=== PATIENT | male | born 1950 ===

== ENCOUNTER 2017-10-03 00:22 | Day surgery (SDC) | payer OTHER ==
[2016-01-17 10:21] VITALS: Ht 165.1 cm; Wt 70.3 kg
[2017-09-30 10:46] LABS: PLATELET COUNT, AUTOMATED 196 K/uL (150-450)
[~2017-10-03] VITALS: Ht 165.1 cm; Wt 70.3 kg
[~2017-10-03 00:22] MED LIST: AMOX-559 PO; ASPI-1471 PO; CETI1TAB80 PO; CHOL10005 PO; CLON-298 PO; CLON0.5T66 PO; CROM13SP10 NS; FEXO1TAB60 PO; GUAI600T57 PO; HYDR-4225 PO; IBUP1TAB93 PO; LEVO-3 PO; LEVO150T72 PO; LOR5/325 PO; MULT-1287 PO; MULT-1335 PO; SERT-1 PO; SERT-173 PO; WHEA1POW PO
[2017-10-03 07:45] VITALS: BP 141/79
[2017-10-03] MEDS ORDERED: fentaNYL CITR 100 MCG/2 ML AMP ONE (08:13)
[2017-10-03] MEDS ORDERED: ONDANSETRON 4 MG/2 ML VIAL ONE (08:14)
[2017-10-03] MEDS ORDERED: LIDOCAINE MPF 1% 5 ML VIAL ONE (08:14)
[2017-10-03] MEDS ORDERED: DEXAMETHASONE SOD 4 MG/ML VIAL ONE (08:14)
[2017-10-03] MEDS ORDERED: PROPOFOL EMUL(*) 10MG/ML 20 ML 20 ML ONE (08:14)
[2017-10-03] MEDS ORDERED: GENTAMICIN(*) 80 MG/2 ML VIAL 160 MG in DEXTROSE 5%(*) 100 ML BAG 100 ML IVPB ONE (08:25)
[2017-10-03] MEDS ORDERED: LIDOCAINE/SOD BICARB 8.4% SYR ID ONE (08:25)
[2017-10-03] MEDS ORDERED: NORMOSOL R SOLN(*) 1000 ML BAG 1,000 ML IV PRN (08:25)
[2017-10-03] MEDS ORDERED: cefTRIAXone(*) 1 GM VIAL 1 GM in NS(*) 0.9% 100 ML ADDVANT BAG 100 ML IVPB ONE (08:25)
[2017-10-03] MEDS ORDERED: FAMOTIDINE 20 MG TAB PO ONE (08:25)
[2017-10-03] MEDS ORDERED: MIDAZOLAM 2 MG/2 ML VIAL IVP PRN (08:25)
[2017-10-03] MEDS ORDERED: ePHEDrine 25 MG/5 ML DISP.SYR IVP ONE (10:05)
[2017-10-03] MEDS ORDERED: WATER FOR IRRIG,STERILE 3000ML IR ONE (10:31)
--- NOTE | 2017-10-03 11:12 | RADIOLOGY IMAGING REPORT ---
FACILITY: [facility] - [place] PATIENT NAME: Roverto Beebe : 1950 MR: [id number] V: [id number] EXAM DATE: ORDERING PHYSICIAN: JOHN ALLEN TECHNOLOGIST: Location: [facility] - [place] Patient: Roverto Beebe : 1950 Visit/Account:[id number] Date of Sevice: 10/03/2017 Exam type: PROSTATE BIOPSY History: Elevated PSA Comparison: None. Findings: Prostate biopsy was performed by Dr. Allen. Sonographic assistance was provided. Please see Dr. Alexis low's report for complete details IMPRESSION: 1. As above Report Dictated By: Shelbie Prado MD at 10/03/2017 11:08 AM Report E-Signed By: Shelbie Prado MD at 10/03/2017 11:08 AM WSN:[email or web address]
[2017-10-03] MEDS ORDERED: FAMO-67 PO (11:36)
[2017-10-03] MEDS ORDERED: LEVO-85 PO (11:36)
[2017-10-03] MEDS ORDERED: IBUP800T37 PO (11:37)
[2017-10-03 11:50] VITALS: BP 112/62
[2017-10-03 12:00] VITALS: BP 109/59
[2017-10-03] MEDS ORDERED: HYDR-389 PO (12:04)
[2017-10-03 12:15] VITALS: BP 108/64
[2017-10-03 12:22] VITALS: BP 110/61
[2017-10-03 12:23] VITALS: BP 117/59
--- NOTE | 2017-10-04 18:41 | OPERATIVE REPORT 1 ---
EVENT DATE: October 03, 2017 SURGEON: Clarence Muro MD ANESTHESIOLOGIST: Dimitri Carvajal MD ANESTHESIA: General anesthetic. PREOPERATIVE DIAGNOSIS Elevated prostate-specific antigen, etiology ? POSTOPERATIVE DIAGNOSES 1. Elevated prostate-specific antigen, etiology ? 2. Calculus prostatitis. PROCEDURES 1. Prostate ultrasound 2. Transrectal biopsies x 12 3. Cystoscopy DESCRIPTION OF PROCEDURE Under general anesthetic, the patient was prepped and draped in the extended lithotomy position. The 21 panendoscope was admitted through the urethra into the bladder. The urethra was normal. The prostate showed trilobar hyperplasia with obstruction. There was minimal blood in the prostatic urethra. The bladder showed 4+ trabeculation and slight intravesical extension of the median lobe. The trigone and ureteral orifices were normal. No demonstrable lesions. The prostate ultrasound probe was introduced, and scanning showed cystic lesions on the right lateral and mid areas of the prostate. The cyst in the mid prostate was probably coming from the seminal vesicle or the ampulla of the vas deferenes. The prostate was scanned. There were calculi at the left mid base, consistent with the area where I was feeling some induration in my opinion. The prostate measured approximately 31 g. Biopsies were obtained from the base , mid, and apical areas of the prostate bilaterally for a total of 12 samples, two from each area. The ultrasound probe was removed. Digital rectal exam revealed minimal blood in the rectal ampulla. The patient tolerated the procedures satisfactorily and returned to the recovery room in satisfactory condition. This is a 67-year-old [place]ian male complaining of elevated PSA in the range of 8.22 in May 2017. He had a preoperative PSA that resulted 6.9. Options were discussed with the patient. He was agreeable to further evaluation as to the etiology of his elevated prostate-specific antigen. That has been accomplished. See operative note for details. The patient will be ready for discharge home when alert and functional. He is to force fluids, 2 L per day. Activities are as tolerated. We plan followup on the September. He is to call for an appointment. He is call this coming Tuesday for the results of his biopsies. He is to continue to use the medications. A copy of the instructions was given to the patient. The patient was discharged home on [place], Pepcid, Motrin, and Levaquin therapy in addition to his usual medications. MTDD
[2017-10-26] MEDS ORDERED: BICA50TA39 PO (12:15)
[2017-10-26] MEDS ORDERED: LEUP3.753 IM (12:15)
== END 2017-10-03 11:50 | disposition home or self-care (01) ==
LOC: OR 00:22
DX: R97.20 Elevated prostate specific antigen [PSA] (principal); N41.9 Inflammatory disease of prostate, unspecified
CPT/HCPCS: 36415; 55700; 76942; 84153; 84443; 85025; 88305; 88344; J0696; J1100; J1580; J2001; J2405; J2704; J3010; J7050; J7060; 82040; 82247; 82310; 82374; 82435; 82565; 82947; 84075; 84132; 84155; 84295; 84450; 84460; 84520

== ENCOUNTER → 2017-10-21 | Outpatient (CLI) | payer OTHER ==
[2016-01-17 10:21] VITALS: BMI 25.7
[~2017-10-21] MED LIST changes: +FAMO-67 PO; +HYDR-389 PO; +IBUP800T37 PO; +IOPAMIDOL 76% 75 ML INFUS BTL 75 ML ONE; +LEVO-85 PO; +NS 0.9% 20 ML SDV 40 ML ONE; -SERT-173 PO; +SERT20OR6 PO
--- NOTE | 2017-10-21 10:05 | RADIOLOGY IMAGING REPORT ---
[place] [facility] [place] Roverto Beebe : 1950 MR: [id number] V: [id number] EXAM DATE: ORDERING PHYSICIAN: JOHN ALLEN TECHNOLOGIST: Location: [facility] [place] Patient: Roverto Beebe : 1950 Visit/Account:[id number] Date of Sevice: 10/21/2017 ABDOMEN/PELVIS W/WO CONTRAST HISTORY: Adenocarcinoma the prostate TECHNIQUE: Axial images acquired through the abdomen/pelvis both with and without IV contrast.. Salo nal and sagittal reformatting also performed. Dose Lowering Technique One of the following dose optimization techniques was utilized in the performance of this exam: Autom ated exposure control; adjustment of the mA and/or kV according to the patient's size; or use of an i terative reconstruction technique. Specific details can be referenced in the facility's radiology C T exam operational policy. CONTRAST: 75 mL Isovue-370 COMPARISON: None. FINDINGS: Visualized lung bases: There is a 6 mm noncalcified pulmonary nodule inferior aspect the right middl e lobe best seen on image 42 of series 5. There are multiple noncalcified pulmonary nodules in the right lower lobe ranging in size from 2 mm t o 8 mm. . There are multiple noncalcified pulmonary nodules in the left lower lobe ranging in size from 2 mm to 9 mm. There are several noncalcified pulmonary nodules in the lingula ranging in size from 2 mm to 5 mm Hepatobiliary: Negative. Spleen: Negative. Adrenals: Negative. Pancreas: Negative. Kidneys ureters and bladder: Negative. Genitalia: The prostate gland is borderline enlarged impinging upon the floor the urinary bladder. GI: There is diverticulosis left-sided colon although no CT evidence of acute diverticulitis. On th e without contrast images there is moderate fluid distention of the distal esophagus suggesting gastr oesophageal reflux disease Vessels/spaces/nodes: Mild to moderate vascular calcifications Bones/soft tissues: Bilateral inguinal hernias containing fat. There is a 1 cm anterior listhesis of L5 with respect to S1 secondary to bilateral pars defects at L5 . There are severe disc space narrowing at this level and degenerative endplate changes. There is a sclerotic density seen along the left side of the L1 vertebral body is indeterminate Additional findings: None pertinent. IMPRESSION: There are multiple noncalcified pulmonary nodules seen in both lower lobes. Given the clinical histo ry of prostate cancer metastases should be excluded. The current Fleischner Society recommendations are as follows For nodules this size in a low-risk patient (minimal or absent smoking history, no his tory of malignancy), a 3-6 month follow-up CT is recommended, then consider CT at 18-24 months. In a high risk patient, (smoking or malignancy history), a CT at 3-6 months then at 18-24 months is recomm ended. Diverticulosis left-sided colon although no CT evidence of acute diverticulitis There is moderate fluid distention of the distal esophagus suggesting gastroesophageal reflux disease Bilateral inguinal hernias containing fat Spondylotic changes lumbar spine most prominent at L5-S1 Sclerotic density along the left-sided L1 vertebral body is indeterminate. This could represent a [place] although a bone metastases not excluded given the clinical history of prostate cancer. Bon e scan may be of value. Report Dictated By: Shelbie Prado MD at 10/21/2017 9:40 AM Report E-Signed By: Shelbie Prado MD at 10/21/2017 10:01 AM WSN:[email or web address]
--- NOTE | 2017-10-21 13:09 | RADIOLOGY IMAGING REPORT ---
FACILITY: [facility] PATIENT NAME: Roverto Beebe : 1950 MR: [id number] V: [id number] EXAM DATE: ORDERING PHYSICIAN: JHON ALLEN TECHNOLOGIST: Location: [facility] Patient: Roverto Beebe : 1950 Visit/Account:[id number] Date of Sevice: 10/21/2017 WHOLE BODY BONE SCAN HISTORY: Prostate cancer TECHNIQUE: 26.5 mCi technetium 99m HDP was injected intravenously. Delayed anterior and posterior wh ole body gamma camera images were obtained. Additional gamma camera images: Right and left lateral skull COMPARISON: CT abdomen and pelvis performed today and CT of the neck March 15, 2016 FINDINGS: Bone radiotracer activity: There is very mild uptake seen over the lower cervical spine consistent w ith degenerative changes. There is a focal area of isotope uptake seen over the right sternoclavicul ar joint and small subtle focal areas of isotope uptake seen over both clavicles. Extraosseous radiotracer activity: Unremarkable. Renal and urinary collecting system activity: Unremarkable. IMPRESSION: There is isotope uptake over the lower cervical spine corresponding to degenerative changes in the ce rvical spine as seen on a prior CT from March 15, 2016 Focal area of isotope uptake over the right sternum curvature joints consistent with degenerative nemo nges as seen on the prior CT Subtle focal areas of isotope uptake seen over both clavicles possibly related to prior trauma No scintigraphic evidence of osseous metastases. Report Dictated By: Shelbie Prado MD at 10/21/2017 1:02 PM Report E-Signed By: Shelbie Prado MD at 10/21/2017 1:05 PM WSN:[email or web address]
== END ==
LOC: CT 03:12
DX: R91.8 Other nonspecific abnormal finding of lung field (principal); K57.30 Diverticulosis of large intestine without perforation or abscess without bleeding; K40.20 Bilateral inguinal hernia, without obstruction or gangrene, not specified as recurrent; M47.896 Other spondylosis, lumbar region
CPT/HCPCS: 74178; 78306; A9503; J7050; Q9967

== ENCOUNTER 2017-12-29 08:23 | Outpatient (RCR) | payer MEDICARE, OTHER ==
[2016-01-17 10:21] VITALS: BMI 25.7
[2016-11-01 09:19] VITALS: BP 124/65
--- NOTE | 2017-10-25 22:22 | ONCOLOGY CONSULTATION ---
EVENT DATE: October 25, 2017 PRIMARY SITE AND HISTOPATHOLOGY Moderate to poorly differentiated adenocarcinoma of the prostate. Patient presenting with an elevated PSA and palpable nodule. Ultrasound-guided biopsy of the prostate on October 03, 2017 reveals moderate to poorly differentiated adenocarcinoma of the prostate in 10 of 12 core biopsy specimens. Karrie 4+5= 9 poorly differentiated carcinoma involving the right lateral gland. Right lateral base is also Karrie 9, and left lateral biopsy is a [place] 7 carcinoma. See pathology report for full details. Stage T2 Nx M0. HISTORY OF PRESENT ILLNESS This is a 67-year-old gentleman who was referred to be by Dr. Muro for discussion of radiation oncology options for newly diagnosed prostate carcinoma today. Patient is accompanied by family. 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 Details listed below. The patient [facility], running in the 2 range. He recently had health fair screening [facility] and was found to have an elevated PSA in the 8 range. The patient had an abnormal rectal exam at that time. He also has a family history of prostate carcinoma on his father's side. Patient was then referred to Dr. Muro for further evaluation. He confirmed an abnormal gland, and the patient was scheduled for an ultrasound-guided biopsy on October 03, 2017. Prostate measured 31 g. Twelve samples were taken from the prostate. Cystoscopy was also performed which showed 4+ trabeculation and a slight intravesical extension of the median lobe. Prostate showed trilobar hyperplasia with obstruction. Multiple biopsies were obtained. Tumor occupied 5% to 6% of the core biopsy specimens. Highest [place] grade was 4+5=9 involving right lateral middle biopsy and the right lateral base. Left lobe contained [place] 7 poorly differentiated carcinoma. Ten of 12 biopsies were positive for malignant glands. PSA was repeated as a baseline prior to initiating Lupron, which was 6.9 ng/mL on September 20, 2017. Patient received a single one-month injection of Lupron approximately three weeks ago and is scheduled to have an additional injection in the next week. Patient underwent a staging CT of the abdomen and pelvis as well as a bone scan. I reviewed the studies today. The bone scan is negative. The CT scan reveals an enlarged prostate with some mild irregularity on the left. Seminal vesicles appeared to be grossly symmetric. Spondylotic changes are noted of the lumbar spine at L5-S1. No pelvic lymphadenopathy. Small nodules were noted in the right and left lower lung field, and a follow-up CT scan of the thorax will be obtained later this week. Patient denies any persistent bone pain. He has baseline nocturia times three. Denies any dysuria, denies any hesitancy. A UA score 4. Patient is here to review films and discuss therapeutic options. Baseline CBC and CMP were normal. PAST MEDICAL HISTORY 1. Regionally advanced thyroid carcinoma, presenting to Dr. Wiseman in January of 2016. A 6 x 4.5 x 1.3 cm tumor was submitted, which contained a small papillary carcinoma. Patient was then referred to nm for radiotherapy at that time. He subsequently underwent an iodine-131 scan in [place], as well as external beam radiotherapy to residual tumor activity in the neck. Patient received 94 mCi of iodine-131 in [address]. CT of the chest revealed multiple pulmonary nodules. At least 10 nodules were over 5 mm in size. Residual mass effect was noted in the left neck measuring 5.2 x 5.5 x 5.7 cm. Patient then underwent consolidated radiotherapy to 6620 cGy with an IMRT treatment technique to the residual mass, which was delivered April 2016. Tumor was deemed unresectable at that time, as I conferred with the local surgeon who did the first operation. Patient had a dramatic response to treatment with progressive drop in his thyroglobulin tumor marker to undetectable by June 2016. Patient has also undergone additional surgery this past year in [place]. Those records have been requested. 2. DJD. FAMILY HISTORY Notable for brother who had lymphoma in his 60s. Father had prostate cancer in his 70s, but lived to age 85. SOCIAL HISTORY Patient is . Retired mechanical engineering intern. Two daughters, two sons. Social alcohol use. Nonsmoker. COMPREHENSIVE REVIEW OF SYSTEMS Mildly gravelly voice. No swallowing dysfunction. No respiratory complaints. States that he did have a complication following surgery of a blocked vein in his left neck. No motor weakness. Denies any chest pain or palpitations. No GI complaints. symptoms as above. No hot flashes at this time from hormone therapy. PHYSICAL EXAMINATION GENERAL: A pleasant 67-year-old male of medium build. VITAL SIGNS: BP 137/86, pulse 76, respirations 16, temperature 98.1. Height 65 inches, weight 162. NECK: Palpation reveals no dominant mass or lymphadenopathy. Post surgical changes noted at the base of the left neck. LUNGS: Clear bilaterally. HEART: Sounds regular. No audible murmur. ABDOMEN: Soft with no gross organomegaly. EXTREMITIES: Reveal no edema or cyanosis. RECTAL: Exam was performed. Prostate is slightly enlarged. There is palpable induration or firmness in both the right and left lobe. There is elevation in the left lobe, peripheral portion of the gland by 1 cm. No tenderness noted. IMPRESSION This is a pleasant 67-year-old gentleman with newly diagnosed poorly differentiated carcinoma of the prostate. The tumor typically behaves in a fashion consistent with the worst [place] score. He has a high volume tumor occupying 10 biopsies involving the left and right lobe. There is a palpable nodule in the prostate. Distant tumor dissemination is reported in 25% to 50% of such cases. For high risk disease, the majority of consultants recommend a combined modality therapy. I recommend full suppression of testosterone with Lupron and bicalutamide. Lupron will continue after 30 days and continue for approximately 24 months, unless adverse effects are present. Radiation Therapy would cover the prostate and seminal vesicles with a wide margin, delivering 50 Gy in 28 fractions. At that point we will need to decide jointly with the patient whether he would like to proceed with external beam radiotherapy boost or a brachytherapy boost. I have used the brachytherapy program predominantly for the Karrie 7 tumors, however, this patient would also be a candidate if he is so inclined. I reviewed the details of the treatment course and potential acute and late side effects. We also discussed therapeutic alternatives and reviewed all of his radiographic studies as well as his pathology report in detail. At the end of our discussion, the patient indicated he would like to proceed with the radiation program. Signed consent was obtained for treatment. He will undergo targeting simulation on of this week. We will start radiotherapy approximately a week afterward. I will also use this as an opportunity to follow up his thyroid carcinoma status. Repeat CT of the thorax with contrast will be obtained toward the end of the week, and updated thyroglobulin tumor marker will also be drawn. He has an oxygen tank filler that is helping direct his therapy in [place], and we will forward records when all the information is complete. Thank you for the referral and opportunity to discuss options with Mr. Beebe and his family today. HUSSAIN
[~2017-12-29 08:23] MED LIST changes: +BICA50TA39 PO; +DEXTROSE 5%(*) 100 ML BAG 100 ML IVPB PRN; +LEUP3.753 IM; +LIDOCAINE/SOD BICARB 8.4% SYR ID PRN; +NS(*) 0.9% 100 ML BAG 100 ML IVPB PRN; +SERT-173 PO; -SERT20OR6 PO; +TAMS0.4C70 PO
== END 2018-01-23 ==
LOC: RAON 08:23
PROVIDERS: ATTEND Radiology Radiation Oncology
DX: Z51.0 Encounter for antineoplastic radiation therapy (principal); C61 Malignant neoplasm of prostate; C73 Malignant neoplasm of thyroid gland; Z79.899 Other long term (current) drug therapy
CPT/HCPCS: 71270; 77280; 77290; 77300; 77301; 77336; 77338; 77385; 77387; G0463; J7050; Q9967; 99213

== ENCOUNTER 2018-01-31 13:53 | Outpatient (RCR) | payer MEDICARE, OTHER ==
[2016-01-17 10:21] VITALS: BMI 25.7
[2016-11-01 09:19] VITALS: BP 124/65
[2018-01-26 10:16] LABS: PLATELET COUNT, AUTOMATED 164 K/uL (150-450)
[~2018-01-31 13:53] MED LIST changes: -DEXTROSE 5%(*) 100 ML BAG 100 ML IVPB PRN; -IOPAMIDOL 76% 75 ML INFUS BTL 75 ML ONE; -LIDOCAINE/SOD BICARB 8.4% SYR ID PRN; -NS 0.9% 20 ML SDV 40 ML ONE; -NS(*) 0.9% 100 ML BAG 100 ML IVPB PRN
== END 2018-02-06 13:27 | disposition home or self-care (01) ==
LOC: RAON 13:53
PROVIDERS: ATTEND Radiology Radiation Oncology
DX: C61 Malignant neoplasm of prostate (principal); Z85.850 Personal history of malignant neoplasm of thyroid
CPT/HCPCS: 36415; 84153; 84432; 84443; 85025; 86800; G0463; 82040; 82247; 82310; 82374; 82435; 82565; 82947; 84075; 84132; 84155; 84295; 84450; 84460; 84520; 99212